=== PATIENT | male | born 1975 | race African-American/Black ===

== ENCOUNTER 2017-01-21 21:29 | Emergency (ER) | payer SELFPAY ==
[~2017-01-21] VITALS: Ht 170.2 cm; Wt 79.4 kg
[~2017-01-21 21:29] MED LIST: ONDA4TAB10 PO
--- NOTE | 2017-01-21 21:47 | PHYS DOC ---
Past Medical History Past Medical History: Hypertension, Other Additional Past Medical Histor: non-compliant HTN Past Surgical History: No Surgical History Alcohol Use: None Drug Use: None Adult General Chief Complaint Chief Complaint: GROIN PAIN HPI HPI Patient is a 41 year old -[place] male who presents with left-sided groin pain. He states it started about 2 days ago. He denies any testicular pain , scrotal pain, penile discomfort or irritation. He denies any dysuria. He denies fevers chills nausea or vomiting. He does notices a bump in his left inguinal area and states his been getting worse over the last 2 days. He is unsure when his last tetanus shot was. Review of Systems Review of Systems Constitutional: Denies fever or chills [] Eyes: Denies change in visual acuity, redness, or eye pain [] HENT: Denies nasal congestion or sore throat [] Respiratory: Denies cough or shortness of breath [] Cardiovascular: No additional information not addressed in HPI [] GI: Denies abdominal pain, nausea, vomiting, bloody stools or diarrhea [] : Denies dysuria or hematuria [] Musculoskeletal: Denies back pain or joint pain [] Integument: Denies rash or skin lesions [] Neurologic: Denies headache, focal weakness or sensory changes [] Endocrine: Denies polyuria or polydipsia [] Current Medications Current Medications Current Medications Medications (Trade) Dose Ordered Sig/Sybil Start Time Stop Time Status Last Admin Dose Admin Clindamycin HCl (Cleocin) 300 mg 1X ONCE 01/21/17 23:30 01/21/17 23:31 Diphtheria/ Tetanus/Acell Pertussis (Boostrix) 0.5 ml ONCE ONCE 01/21/17 22:00 01/21/17 22:01 DC 01/21/17 22:08 0.5 ML Lidocaine/Sodium Bicarbonate (Buffered Lidocaine 1%) 20 ml 1X ONCE 01/21/17 22:00 01/21/17 22:01 DC 01/21/17 22:07 20 ML Morphine Sulfate 4 mg PRN Q15MIN PRN 01/21/17 22:00 01/22/17 21:59 01/21/17 22:09 4 MG Allergies Allergies Allergies Coded Allergies Type Severity Reaction Last Updated Verified No Known Drug Allergies 09/05/16 No Physical Exam Physical Exam Constitutional: Well developed, well nourished, no acute distress, non-toxic appearance. [] HENT: Normocephalic, atraumatic, bilateral external ears normal, oropharynx moist, no oral exudates, nose normal. [] Eyes: PERRLA, EOMI, conjunctiva normal, no discharge. [] Neck: Normal range of motion, no tenderness, supple, no stridor. [] Cardiovascular:Heart rate regular rhythm, no murmur [] Lungs & Thorax: Bilateral breath sounds clear to auscultation [] Abdomen/genital: Bowel sounds normal, soft, no tenderness, no masses, no pulsatile masses. No penile or testicular pain, a 1 cm x 0.5 cm erythematous purulent mass in the left inguinal canal Skin: Warm, dry, no erythema, no rash. [] Back: No tenderness, no CVA tenderness. [] Extremities: No tenderness, no cyanosis, no clubbing, ROM intact, no edema. [] Neurologic: Alert and oriented X 3, normal motor function, normal sensory function, no focal deficits noted. [] Psychologic: Affect normal, judgement normal, mood normal. [] Current Patient Data Vital Signs Vital Signs Date Time Temp Pulse Resp B/P (MAP) Pulse Ox O2 Delivery O2 Flow Rate FiO2 01/21/17 23:06 70 18 143/89 (107) 99 Room Air 01/21/17 21:44 98.6 98.6 EKG EKG [] Radiology/Procedures Radiology/Procedures [] Impressions: Groin abscess Course & Med Decision Making Course & Med Decision Making Pertinent Labs and Imaging studies reviewed. (See chart for details) Groin was ID, wound cultures sent per patient was started on some ice and his tetanus was updated. His groin incision and drainage was cautiously done because its superficial to his femoral artery and vein, he specifically instructed he has any bleeding leg numbness or tingling to return back to ER immediately He's follow-up with surgery. He is return ER in 3 days for wound check. Return precautions given his agreeable to plan and being discharged in stable condition. Dragon Disclaimer Dragon Disclaimer This electronic medical record was generated, in whole or in part, using a voice recognition dictation system. Departure Departure Impression: Primary Impression: Abscess Disposition: 01 HOME, SELF-CARE Condition: STABLE Referrals: NO PCP (PCP) CARLEE HECK MD Patient Instructions: Abscess, Care After Additional Instructions: Your wound was opened and drained. It was packed with iodoform gauze. You will need to come back in 3 days to have the wound looked at and possibly the packing removed. If you develop bleeding, increasing pain, fevers return to the ER immediately. He will need take and a Biaxin next 10 days. You will need to follow-up with Dr. Heck or one of his partners. Please call their office and schedule follow-up appointment for within the next 3 days. He can use [place] which is a narcotic pain medicine as needed for pain. It can impair judgment and make you sleepy so don't drive or drink alcohol with this medicine. Scripts Hydrocodone/Apap 5-325 (NORCO 5-325 TABLET) 1 Each Tablet 1-2 TAB PO Q6HRS Y for PAIN, #12 TAB Prov: ÓSCAR CLAY MD 01/21/17 Clindamycin Hcl (CLINDAMYCIN HCL) 300 Mg Capsule 1 CAP PO TID, #30 CAP Prov: ÓSCAR CLAY MD 01/21/17 Incision and Drainage Indication: abscess Procedure: The patient was positioned appropriately. Local anesthesia was 3 mL of buffered lidocaine. An incision was then made over the apex of the lesion and purulent drainage material was expressed, 2 different incisions were made and packed. The drainage cavity was irrigated and packed with sterile gauze. The patients tetanus status updated as needed. The patient tolerated the procedure well. Complications: none. ÓSCAR CLAY MD Jan 21, 2017 21:47
[2017-01-21] MEDS ORDERED: MORPHINE SULFATE 4 MG/ML DISP.SYRIN. IV/SQ PRN (22:00)
[2017-01-21] MEDS ORDERED: DIPHTH,PERTUSS(ACELL),TET TOX 0.5 ML DISP.SYRIN. VAX IM ONE (22:00)
[2017-01-21] MEDS ORDERED: LIDOCAINE 1% / SOD BICARB 8.4% 20 ML VIAL. IJ ONE (22:00)
[2017-01-21] MEDS ORDERED: HYDR-971 PO (23:23)
[2017-01-21] MEDS ORDERED: CLIN300C8 PO (23:23)
[2017-01-21] MEDS ORDERED: CLINDAMYCIN HCL 150 MG CAPSULE. PO ONE (23:30)
[2017-01-21 23:48] VITALS: BP 137/85
== END 2017-01-21 23:49 | disposition home or self-care (01) ==
LOC: ER 21:29
DX: L02.214 Cutaneous abscess of groin (principal); I10 Essential (primary) hypertension
CPT/HCPCS: 10060; 87070; 87205; 90471; 90715; 96372; 99284; J2270

== ENCOUNTER 2019-11-27 23:33 | Emergency (ER) | payer SELFPAY ==
[~2019-11-27] VITALS: Ht 170.2 cm; Wt 79.5 kg
[~2019-11-27 23:33] MED LIST changes: +CLIN300C8 PO; +HYDR-3164 PO
[2019-11-28 00:06] LABS: BASO % 1 % (0-3); EOS # 0.2 x10^3/uL (0.0-0.7); EOS % 3 % (0-3); HEMATOCRIT 40.4 % (39.0-53.0); HEMOGLOBIN 13.8 g/dL (13.0-17.5); LYMPH # 1.2 x10^3/uL (1.0-4.8); LYMPH % 23 % (24-48); MEAN CORPUSCULAR HEMOGLOBIN 29 pg (25-35); MEAN CORPUSCULAR HGB CONC 34 g/dL (31-37); MEAN CORPUSCULAR VOLUME 86 fL (79-100); MONO # 0.5 x10^3/uL (0.0-1.1); MONO % 10 % (0-9); NEUT # 3.4 x10^3/uL (1.8-7.7); NEUT % 64 % (31-73); PLATELET COUNT 225 x10^3/uL (140-400); RED CELL DISTRIBUTION WIDTH 15.3 % (11.5-14.5); WHITE BLOOD COUNT 5.4 x10^3/uL (4.0-11.0)
--- NOTE | 2019-11-28 00:24 | RAD ---
PORTABLE CHEST 1V Clinical Indication: Chest wall pain Comparison: None. Findings: There are calcified lymph nodes right supraclavicular, right paratracheal, AP window, and left hilar. The cardiac size is normal. Lungs are clear. There is no pneumothorax. No pleural effusion is appreciated. No acute bone abnormality. IMPRESSION: No acute cardiopulmonary process. Electronically signed by: Bin Ponce MD (11/28/2019 12:21 AM) [id number]
[2019-11-28] MEDS ORDERED: hydrALAZINE 20 MG/ML VIAL. IVP ONE (00:30)
[2019-11-28] MEDS ORDERED: IV NORMAL SALINE 1000ML BAG 1,000 ML IV SCH (00:30)
[2019-11-28] MEDS ORDERED: KETOROLAC 30 MG/ML VIAL. IVP ONE (00:30)
[2019-11-28] MEDS ORDERED: TRAM50TA PO (00:55)
[2019-11-28] MEDS ORDERED: DICL50TA4 PO (00:55)
--- NOTE | 2019-11-28 00:55 | PHYS DOC ---
Past Medical History Past Medical History: Hypertension Additional Past Medical Histor: non-compliant HTN Past Surgical History: No Surgical History Smoking Status: Current Some Day Smoker Alcohol Use: None Drug Use: None General Adult EDM: Chief Complaint: HYPERTENSION HPI: HPI: Patient is a 44 year old male who presents with complaint of chest discomfort for the last 2 days. Patient states that pain is sharp and stabbing in nature and is worsened with deep breathing. He rates pain as moderate and sometimes severe. He also indicates that he has pain in his back at about the same level that is also worsened with deep breathing. He denies any cough or shortness of breath. He also denies any fever. He denies any recent back injury. [] Review of Systems: Review of Systems: Constitutional: Denies fever or chills. [] Respiratory: Denies cough or shortness of breath. [] Cardiovascular: Complains of chest wall pain. [] GI: Denies abdominal pain, nausea, vomiting or diarrhea. [] Musculoskeletal: Complains of midthoracic back pain. [] Integument: Denies rash. [] Neurologic: Denies headache, focal weakness or sensory changes. [] A full 10 point review of systems has been reviewed and is otherwise negative. Heart Score: Risk Factors: Risk Factors: DM, Current or recent (<one month) smoker, HTN, HLP, family history of CAD, obesity. Risk Scores: Score 0 - 3: 2.5% MACE over next 6 weeks - Discharge Home Score 4 - 6: 20.3% MACE over next 6 weeks - Admit for Clinical Observation Score 7 - 10: 72.7% MACE over next 6 weeks - Early Invasive Strategies Current Medications: Current Medications Medications (Trade) Dose Ordered Sig/Sybil Start Time Stop Time Status Last Admin Dose Admin Hydralazine HCl (Apresoline Inj) 10 mg 1X ONCE 11/28/19 00:30 11/28/19 00:31 DC 11/28/19 00:35 10 MG Ketorolac Tromethamine (Toradol 30mg Vial) 30 mg 1X ONCE 11/28/19 00:30 11/28/19 00:31 DC 11/28/19 00:34 30 MG Sodium Chloride 1,000 ml @ 1,000 mls/hr Q1H 11/28/19 00:30 11/28/19 01:29 11/28/19 00:35 1,000 MLS/HR Allergies: Allergies: Allergies Coded Allergies Type Severity Reaction Last Updated Verified No Known Drug Allergies 09/05/16 No Physical Exam: PE: Constitutional: Well developed, well nourished, no acute distress, non-toxic appearance. [] HENT: Normocephalic, atraumatic, bilateral external ears normal, oropharynx moist, no oral exudates, nose normal. [] Eyes: PERRLA, EOMI, conjunctiva normal, no discharge. [] Neck: Normal range of motion, no tenderness, supple, no stridor. [] Cardiovascular: Regular rate and rhythm. There is reproducible chest wall tenderness along the lower sternal margin bilaterally [] Lungs & Thorax: Bilateral breath sounds clear to auscultation [] Abdomen: Bowel sounds normal, soft, no tenderness. [] Skin: Warm, dry, no erythema, no rash. [] Extremities: No tenderness, no cyanosis, no clubbing, ROM intact, no edema. [] Neurologic: Alert and oriented X 3, no focal deficits noted. [] Current Patient Data: Labs: Laboratory Tests Test 11/27/19 23:58 White Blood Count 5.4 x10^3/uL (4.0-11.0) Red Blood Count 4.70 x10^6/uL (4.30-5.70) Hemoglobin 13.8 g/dL (13.0-17.5) Hematocrit 40.4 % (39.0-53.0) Mean Corpuscular Volume 86 fL (79-100) Mean Corpuscular Hemoglobin 29 pg (25-35) Mean Corpuscular Hemoglobin Concent 34 g/dL (31-37) Red Cell Distribution Width 15.3 % (11.5-14.5) H Platelet Count 225 x10^3/uL (140-400) Neutrophils (%) (Auto) 64 % (31-73) Lymphocytes (%) (Auto) 23 % (24-48) L Monocytes (%) (Auto) 10 % (0-9) H Eosinophils (%) (Auto) 3 % (0-3) Basophils (%) (Auto) 1 % (0-3) Neutrophils # (Auto) 3.4 x10^3/uL (1.8-7.7) Lymphocytes # (Auto) 1.2 x10^3/uL (1.0-4.8) Monocytes # (Auto) 0.5 x10^3/uL (0.0-1.1) Eosinophils # (Auto) 0.2 x10^3/uL (0.0-0.7) Basophils # (Auto) 0.0 x10^3/uL (0.0-0.2) Laboratory Tests 11/27/19 23:58 Vital Signs: Vital Signs Date Time Temp Pulse Resp B/P (MAP) Pulse Ox O2 Delivery O2 Flow Rate FiO2 11/28/19 00:35 75 177/105 11/28/19 00:07 98.8 20 99 Room Air 98.8 EKG: EKG: EKG demonstrates normal sinus rhythm with rate of 72. [] Radiology/Procedures: Radiology/Procedures: [] Impression: PROCEDURE: PORTABLE CHEST 1V PORTABLE CHEST 1V Clinical Indication: Chest wall pain Comparison: None. Findings: There are calcified lymph nodes right supraclavicular, right paratracheal, AP window, and left hilar. The cardiac size is normal. Lungs are clear. There is no pneumothorax. No pleural effusion is appreciated. No acute bone abnormality. IMPRESSION: No acute cardiopulmonary process. Electronically signed by: Bin Ponce MD (11/28/2019 12:21 AM) [id number] Course & Med Decision Making: Course & Med Decision Making Pertinent Labs and Imaging studies reviewed. (See chart for details) [] Dragon Disclaimer: Dragon Disclaimer: This electronic medical record was generated, in whole or in part, using a voice recognition dictation system. Departure Departure Impression: Primary Impression: Costochondritis Disposition: 01 HOME, SELF-CARE Condition: STABLE Referrals: NO PCP (PCP) Patient Instructions: Costochondritis Scripts Tramadol Hcl (TRAMADOL HCL) 50 Mg Tablet 50 MG PO Q6HRS PRN for PAIN, #12 TAB Prov: ANUPAM WISE Jr. DO 11/28/19 Diclofenac Sodium (DICLOFENAC SODIUM) 50 Mg Tablet. 1 TAB PO BID PRN for PAIN, #20 TAB Prov: ANUPAM WISE Jr. DO 11/28/19 ANUPAM WISE Jr. DO November 28, 2019 00:55
[2019-11-28] MEDS ORDERED: MAGNESIUM OXIDE 400 MG TABLET PO ONE (01:15)
[2019-11-28 01:20] VITALS: BP 184/114
--- NOTE | 2019-11-28 06:51 | EKG ---
[facility] [address] [place] [address] Test Date: 2019-11-27 Test Time: 23:49:47 Pat Name: RANDY PRATER Department: Room: Gender: M [employer]: : 1975 Requested By: ANUPAM WISE Order Number: [id number] Reading MD: Mg Ortiz Measurements Intervals [place] Rate: 72 P: 56 VT: 132 QRS: 54 QRSD: 86 T: 53 QT: 376 QTc: 413 Interpretive Statements SINUS RHYTHM Electronically Signed On 11-28-2019 13:40:29 CDT by Mg Ortiz
== END 2019-11-28 01:30 | disposition home or self-care (01) ==
LOC: ER 23:33
DX: M94.0 Chondrocostal junction syndrome [Tietze] (principal); I10 Essential (primary) hypertension; F17.200 Nicotine dependence, unspecified, uncomplicated
CPT/HCPCS: 36415; 71045; 80048; 83735; 84484; 85025; 93005; 96374; 96375; 99285; J0360; J1885; J7030